=== PATIENT | male | born 1960 | race Caucasian/White ===

== ENCOUNTER 2023-01-17 13:05 | Outpatient (REF) | payer OTHER, SELFPAY ==
--- NOTE | ~2023-01-17 | XR_ITS ---
EXAMINATION: RIGHT FOOT, BILATERAL ANKLE AND CERVICAL SPINE CLINICAL INDICATION: Ankylosing spondylitis of spine. Pain. TECHNIQUE: Bilateral ankle 2 views. Right foot 3 views. Cervical spine 5 views. FINDINGS: RIGHT FOOT: The joint spaces are maintained normal. There is periarticular spurring of the PIP joint 1st digit. No visible acute fracture, dislocation or subluxation is seen. RIGHT ANKLE: There are small calcaneal and retrocalcaneal enthesophytes. Ankle mortise and subtalar joints are normal. No visible acute fracture, dislocation or subluxation seen. No bony erosive changes seen. LEFT ANKLE: No visible acute fracture, dislocation or subluxation seen. No bony erosive changes.There are retrocalcaneal enthesophytes. The soft tissues are normal CERVICAL SPINE: There is maintained cervical lordosis with ventral spondylosis at C3-C4, C4-C5, C5-C6 and C6-C7 disc heights. The vertebral heights and alignment are preserved. There is bilateral mild narrowing of neural foramina at C3-C4 disc levels from uncovertebral hypertrophic changes. The rest of the neuroforamina are widely patent. No visible acute fracture, dislocation or subluxation seen. The prevertebral and paravertebral soft tissues are normal. XR/XR ankle LT min 3V IMPRESSION: Small calcaneal heel and retrocalcaneal enthesophytes bilateral ankle. No acute fracture or dislocation seen. Unremarkable right foot exam. Mild bilateral narrowing of C3-C4 neuroforamina from uncovertebral hypertrophic changes. No acute fracture or dislocation seen.
--- NOTE | ~2023-01-17 | XR_ITS ---
EXAMINATION: RIGHT FOOT, BILATERAL ANKLE AND CERVICAL SPINE CLINICAL INDICATION: Ankylosing spondylitis of spine. Pain. TECHNIQUE: Bilateral ankle 2 views. Right foot 3 views. Cervical spine 5 views. FINDINGS: RIGHT FOOT: The joint spaces are maintained normal. There is periarticular spurring of the PIP joint 1st digit. No visible acute fracture, dislocation or subluxation is seen. RIGHT ANKLE: There are small calcaneal and retrocalcaneal enthesophytes. Ankle mortise and subtalar joints are normal. No visible acute fracture, dislocation or subluxation seen. No bony erosive changes seen. LEFT ANKLE: No visible acute fracture, dislocation or subluxation seen. No bony erosive changes.There are retrocalcaneal enthesophytes. The soft tissues are normal CERVICAL SPINE: There is maintained cervical lordosis with ventral spondylosis at C3-C4, C4-C5, C5-C6 and C6-C7 disc heights. The vertebral heights and alignment are preserved. There is bilateral mild narrowing of neural foramina at C3-C4 disc levels from uncovertebral hypertrophic changes. The rest of the neuroforamina are widely patent. No visible acute fracture, dislocation or subluxation seen. The prevertebral and paravertebral soft tissues are normal. XR/XR cervical spine 4V IMPRESSION: Small calcaneal heel and retrocalcaneal enthesophytes bilateral ankle. No acute fracture or dislocation seen. Unremarkable right foot exam. Mild bilateral narrowing of C3-C4 neuroforamina from uncovertebral hypertrophic changes. No acute fracture or dislocation seen.
--- NOTE | ~2023-01-17 | XR_ITS ---
EXAMINATION: XR THORACIC SPINE XR LUMBAR SPINE XR SACROILIAC JOINTS CLINICAL INFORMATION: Ankylosing spondylitis. COMPARISON: None available. TECHNIQUE: Dorsal spine 3 views. Lumbar spine 5 views. SI joints 3 views. FINDINGS: Thoracic Spine: There is maintained thoracic kyphosis with calcification of anterior longitudinal ligament. The vertebral heights and alignment are preserved. No aggressive lytic or sclerotic process seen. The paravertebral soft tissues are normal. Lumbar Spine: There is smooth S-shaped scoliosis of thoracolumbar spine. The vertebral heights are maintained. There is levoscoliosis of lumbar spine with the moderate right bridging osteophyte L2-L3 disc level. Mild loss of disc heights are seen at L1-L2, L2-L3 and L3-L4 disc levels. No aggressive lytic or sclerotic process seen. SI joints are symmetrical. SI Joints: There is normal symmetry of bilateral SI joints. No bony erosive changes, sclerosis or lytic process seen. XR/XR lumbar spine 4V min IMPRESSION: 1. Smooth S-shaped scoliosis of thoracolumbar spine. There is calcification of anterior longitudinal ligament. No visible acute fracture or dislocation seen. 2. There is levoscoliosis of lumbar spine with a right bridging osteophyte L2-L3 disc level. 3. SI Joints: There is normal symmetry of bilateral SI joints. No bony erosive changes, sclerosis or lytic process seen.
--- NOTE | ~2023-01-17 | XR_ITS ---
EXAMINATION: RIGHT FOOT, BILATERAL ANKLE AND CERVICAL SPINE CLINICAL INDICATION: Ankylosing spondylitis of spine. Pain. TECHNIQUE: Bilateral ankle 2 views. Right foot 3 views. Cervical spine 5 views. FINDINGS: RIGHT FOOT: The joint spaces are maintained normal. There is periarticular spurring of the PIP joint 1st digit. No visible acute fracture, dislocation or subluxation is seen. RIGHT ANKLE: There are small calcaneal and retrocalcaneal enthesophytes. Ankle mortise and subtalar joints are normal. No visible acute fracture, dislocation or subluxation seen. No bony erosive changes seen. LEFT ANKLE: No visible acute fracture, dislocation or subluxation seen. No bony erosive changes.There are retrocalcaneal enthesophytes. The soft tissues are normal CERVICAL SPINE: There is maintained cervical lordosis with ventral spondylosis at C3-C4, C4-C5, C5-C6 and C6-C7 disc heights. The vertebral heights and alignment are preserved. There is bilateral mild narrowing of neural foramina at C3-C4 disc levels from uncovertebral hypertrophic changes. The rest of the neuroforamina are widely patent. No visible acute fracture, dislocation or subluxation seen. The prevertebral and paravertebral soft tissues are normal. XR/XR foot RT min 3V IMPRESSION: Small calcaneal heel and retrocalcaneal enthesophytes bilateral ankle. No acute fracture or dislocation seen. Unremarkable right foot exam. Mild bilateral narrowing of C3-C4 neuroforamina from uncovertebral hypertrophic changes. No acute fracture or dislocation seen.
--- NOTE | ~2023-01-17 | XR_ITS ---
EXAMINATION: RIGHT FOOT, BILATERAL ANKLE AND CERVICAL SPINE CLINICAL INDICATION: Ankylosing spondylitis of spine. Pain. TECHNIQUE: Bilateral ankle 2 views. Right foot 3 views. Cervical spine 5 views. FINDINGS: RIGHT FOOT: The joint spaces are maintained normal. There is periarticular spurring of the PIP joint 1st digit. No visible acute fracture, dislocation or subluxation is seen. RIGHT ANKLE: There are small calcaneal and retrocalcaneal enthesophytes. Ankle mortise and subtalar joints are normal. No visible acute fracture, dislocation or subluxation seen. No bony erosive changes seen. LEFT ANKLE: No visible acute fracture, dislocation or subluxation seen. No bony erosive changes.There are retrocalcaneal enthesophytes. The soft tissues are normal CERVICAL SPINE: There is maintained cervical lordosis with ventral spondylosis at C3-C4, C4-C5, C5-C6 and C6-C7 disc heights. The vertebral heights and alignment are preserved. There is bilateral mild narrowing of neural foramina at C3-C4 disc levels from uncovertebral hypertrophic changes. The rest of the neuroforamina are widely patent. No visible acute fracture, dislocation or subluxation seen. The prevertebral and paravertebral soft tissues are normal. XR/XR ankle RT min 3V IMPRESSION: Small calcaneal heel and retrocalcaneal enthesophytes bilateral ankle. No acute fracture or dislocation seen. Unremarkable right foot exam. Mild bilateral narrowing of C3-C4 neuroforamina from uncovertebral hypertrophic changes. No acute fracture or dislocation seen.
--- NOTE | ~2023-01-17 | XR_ITS ---
EXAMINATION: XR THORACIC SPINE XR LUMBAR SPINE XR SACROILIAC JOINTS CLINICAL INFORMATION: Ankylosing spondylitis. COMPARISON: None available. TECHNIQUE: Dorsal spine 3 views. Lumbar spine 5 views. SI joints 3 views. FINDINGS: Thoracic Spine: There is maintained thoracic kyphosis with calcification of anterior longitudinal ligament. The vertebral heights and alignment are preserved. No aggressive lytic or sclerotic process seen. The paravertebral soft tissues are normal. Lumbar Spine: There is smooth S-shaped scoliosis of thoracolumbar spine. The vertebral heights are maintained. There is levoscoliosis of lumbar spine with the moderate right bridging osteophyte L2-L3 disc level. Mild loss of disc heights are seen at L1-L2, L2-L3 and L3-L4 disc levels. No aggressive lytic or sclerotic process seen. SI joints are symmetrical. SI Joints: There is normal symmetry of bilateral SI joints. No bony erosive changes, sclerosis or lytic process seen. XR/XR sacroiliac joint min 3V IMPRESSION: 1. Smooth S-shaped scoliosis of thoracolumbar spine. There is calcification of anterior longitudinal ligament. No visible acute fracture or dislocation seen. 2. There is levoscoliosis of lumbar spine with a right bridging osteophyte L2-L3 disc level. 3. SI Joints: There is normal symmetry of bilateral SI joints. No bony erosive changes, sclerosis or lytic process seen.
--- NOTE | ~2023-01-17 | XR_ITS ---
EXAMINATION: XR THORACIC SPINE XR LUMBAR SPINE XR SACROILIAC JOINTS CLINICAL INFORMATION: Ankylosing spondylitis. COMPARISON: None available. TECHNIQUE: Dorsal spine 3 views. Lumbar spine 5 views. SI joints 3 views. FINDINGS: Thoracic Spine: There is maintained thoracic kyphosis with calcification of anterior longitudinal ligament. The vertebral heights and alignment are preserved. No aggressive lytic or sclerotic process seen. The paravertebral soft tissues are normal. Lumbar Spine: There is smooth S-shaped scoliosis of thoracolumbar spine. The vertebral heights are maintained. There is levoscoliosis of lumbar spine with the moderate right bridging osteophyte L2-L3 disc level. Mild loss of disc heights are seen at L1-L2, L2-L3 and L3-L4 disc levels. No aggressive lytic or sclerotic process seen. SI joints are symmetrical. SI Joints: There is normal symmetry of bilateral SI joints. No bony erosive changes, sclerosis or lytic process seen. XR/XR thoracic spine 3V IMPRESSION: 1. Smooth S-shaped scoliosis of thoracolumbar spine. There is calcification of anterior longitudinal ligament. No visible acute fracture or dislocation seen. 2. There is levoscoliosis of lumbar spine with a right bridging osteophyte L2-L3 disc level. 3. SI Joints: There is normal symmetry of bilateral SI joints. No bony erosive changes, sclerosis or lytic process seen.
[2023-01-17 14:49] LABS: MANUAL DIFF FLAG NO
[2023-01-17 14:58] LABS: Basophils Percent Auto 0.4 % (0-2); Eosinophils Absolute Auto 0.1 X10*3/uL (0.0-0.4); Eosinophils Percent Auto 0.9 % (0-4); Hematocrit 39.9 % (42.0-52.0); Hemoglobin 13.9 g/dl (14.0-18.0); Imm Gran Abs Auto 0.02 X10*3/uL (0.00-0.03); Imm Gran Pct Auto 0.3 % (0.0-0.4); Lymphocytes Percent Auto 27.7 % (20-40); Mean Corpuscular HGB Conc 34.8 g/dl (31.0-36.0); Mean Corpuscular Volume 88.9 fL (80.0-98.0); Mean Platelet Volume 9.8 fL (9.4-12.4); Monocytes Absolute Auto 0.5 X10*3/uL (0.1-1.2); Monocytes Percent Auto 6.7 % (2-11); Neutrophils Absolute Auto 4.5 x10*3/uL (2.0-8.3); Platelet Count 227 X10*3/uL (160-400); Red Blood Count 4.49 X10*6/uL (4.60-5.80); Red Cell Distribution Width 12.5 % (11.0-16.0)
[2023-01-17 15:24] LABS: Alanine Aminotransferase 52 U/L (0-40); Albumin Level 4.4 g/dL (3.5-5.0); Alkaline Phosphatase 100 U/L (39-117); Anion Gap 15 (12-20); Aspartate Amino Transferase 42 U/L (5-37); Bilirubin Total 0.8 mg/dL (0.0-1.0); Blood Urea Nitrogen 8 mg/dL (9-16); C Reactive Protein 0.42 mg/dL (< or = 0.50); Calcium 9.2 mg/dL (8.4-10.2); Carbon Dioxide 23 mmol/L (22-29); Chloride 103 mmol/L (96-108); Estimated Glomerular Filt Rate > 60; Glucose Random 104 mg/dL (60-115); Potassium 4.4 mmol/L (3.3-5.1); Rheumatoid Factor < 13.0 IU/mL (<15.0); Sodium 137 mmol/L (135-145); Total Protein 6.6 g/dL (6.5-8.0)
[2023-01-17 16:18] LABS: Erythrocyte Sedimentation Rate 5 MM/HR (0-15)
[2023-01-18 04:04] LABS: HBS Num1 0.11 mIU/mL (0-7.99); HBc Num1 0.07 S/CO (0.00-0.79); Hepatitis A Antibody IgM 0.13 Index (0-0.79); Hepatitis B Core Antibody Nonreactive (Nonreactive); Hepatitis B Surface Antigen Negative (Negative); ~HepC Num1 0.07 S/CO (0.00-0.79); ~Hepatitis A Antibody IgM Nonreactive (Nonreactive); ~Hepatitis B Surface Antibody NONREACTIVE (Nonreactive); ~Hepatitis C Antibody Nonreactive (Nonreactive)
[2023-01-20 04:34] LABS: TS Negative Control Passed; TS Panel A 1; TS Panel B 1; TS Positive Control Passed; TSpotTB Negative (Negative)
[2023-01-20 23:08] LABS: Prot Elec - Albumin 4.3 g/dL (3.8-4.8); Prot Elec - Alpha1 0.3 g/dL (0.2-0.3); Prot Elec - Alpha2 0.9 g/dL (0.5-0.9); Prot Elec - Beta 1 0.4 g/dL (0.4-0.6); Prot Elec - Beta 2 0.3 g/dL (0.2-0.5); Prot Elec - Gamma 0.7 g/dL (0.8-1.7); Prot Elec - Total Protein 6.8 g/dL (6.1-8.1)
[2023-01-21 15:19] LABS: IgA 133 mg/dL (47-310); IgG 746 mg/dL (600-1640); IgM 135 mg/dL (50-300)
[2023-01-22 11:03] LABS: Cyclic Citrullinated Peptide <16 UNITS
== END 2023-01-17 13:06 | disposition home or self-care (01) ==
LOC: HO.XRAY 13:05
PROVIDERS: PCP Internal Medicine; Visit Provider Student in an Organized Health Care Education/Training Program
DX: M45.9 Ankylosing spondylitis of unspecified sites in spine (principal); M06.09 Rheumatoid arthritis without rheumatoid factor, multiple sites; M1A.09X0 Idiopathic chronic gout, multiple sites, without tophus (tophi); Z11.59 Encounter for screening for other viral diseases; Z11.7 Encounter for testing for latent tuberculosis infection; Z79.52 Long term (current) use of systemic steroids; Z79.899 Other long term (current) drug therapy; Z72.89 Other problems related to lifestyle
CPT/HCPCS: 36415; 72050; 72072; 72110; 72202; 73610; 73630; 80053; 82784; 84165; 84550; 85025; 85652; 86140; 86200; 86334; 86431; 86481; 86704; 86706; 86709; 86803; 87340

== ENCOUNTER 2023-09-24 13:11 | Outpatient (AMB) | payer OTHER, SELFPAY ==
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
[2023-09-24 13:15] VITALS: BP 100/80; PULSE 64; TEMP 36.5; O2SAT 97; BMI 28.9
== END 2023-09-24 13:46 | disposition home or self-care (01) ==
PROVIDERS: PCP Internal Medicine; Visit Provider Student in an Organized Health Care Education/Training Program
DX: M06.09 Rheumatoid arthritis without rheumatoid factor, multiple sites (principal); M1A.09X0 Idiopathic chronic gout, multiple sites, without tophus (tophi); Z79.631 Long term (current) use of antimetabolite agent; Z71.85 Encounter for immunization safety counseling
CPT/HCPCS: 99214

== ENCOUNTER → 2023-09-24 13:11 | Outpatient (BNVA) | payer OTHER, SELFPAY | PROVIDERS: PCP Internal Medicine; Visit Provider Student in an Organized Health Care Education/Training Program ==

== ENCOUNTER 2023-12-24 12:45 | Outpatient (AMB) | payer OTHER, SELFPAY ==
[2023-12-24 12:48] VITALS: BP 118/64; PULSE 74; O2SAT 97; BMI 28.9
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
== END 2023-12-24 13:18 | disposition home or self-care (01) ==
PROVIDERS: PCP Internal Medicine; Visit Provider Student in an Organized Health Care Education/Training Program
DX: M06.09 Rheumatoid arthritis without rheumatoid factor, multiple sites (principal); M1A.09X0 Idiopathic chronic gout, multiple sites, without tophus (tophi); Z79.631 Long term (current) use of antimetabolite agent; Z79.899 Other long term (current) drug therapy
CPT/HCPCS: 99214

== ENCOUNTER → 2023-12-24 12:45 | Outpatient (BNVA) | payer OTHER, SELFPAY | PROVIDERS: PCP Internal Medicine; Visit Provider Student in an Organized Health Care Education/Training Program ==

== ENCOUNTER 2024-03-25 08:01 | Outpatient (REF) | payer OTHER, SELFPAY ==
[2024-03-25 10:40] LABS: MANUAL DIFF FLAG NO
[2024-03-25 10:57] LABS: Basophils Percent Auto 0.5 % (0-2); Eosinophils Absolute Auto 0.1 X10*3/uL (0.0-0.4); Eosinophils Percent Auto 1.3 % (0-4); Hematocrit 41.1 % (42.0-52.0); Imm Gran Abs Auto 0.03 X10*3/uL (0.00-0.03); Imm Gran Pct Auto 0.5 % (0.0-0.4); Lymphocytes Absolute Auto 1.9 X10*3/uL (1.2-4.9); Lymphocytes Percent Auto 30.5 % (20-40); Mean Corpuscular HGB Conc 34.1 g/dl (31.0-36.0); Mean Corpuscular Volume 91.1 fL (80.0-98.0); Mean Platelet Volume 10.4 fL (9.4-12.4); Monocytes Absolute Auto 0.6 X10*3/uL (0.1-1.2); Monocytes Percent Auto 9.4 % (2-11); Neutrophils Absolute Auto 3.7 x10*3/uL (2.0-8.3); Neutrophils Percent Auto 57.8 % (45-73); Platelet Count 201 X10*3/uL (160-400); Red Blood Count 4.51 X10*6/uL (4.60-5.80); Red Cell Distribution Width 13.2 % (11.0-16.0); White Blood Count 6.3 X10*3/uL (4.8-10.8)
[2024-03-25 10:59] LABS: Alanine Aminotransferase 36 U/L (0-40); Albumin Level 4.6 g/dL (3.5-5.0); Alkaline Phosphatase 91 U/L (39-117); Anion Gap 12 (12-20); Aspartate Amino Transferase 34 U/L (5-37); Bilirubin Total 0.8 mg/dL (0.0-1.0); Blood Urea Nitrogen 11 mg/dL (9-16); C Reactive Protein 0.33 mg/dL (< or = 0.50); Calcium 9.7 mg/dL (8.4-10.2); Carbon Dioxide 24 mmol/L (22-29); Chloride 105 mmol/L (96-108); Estimated Glomerular Filt Rate > 60; Glucose Random 106 mg/dL (60-115); Potassium 4.1 mmol/L (3.3-5.1); Sodium 137 mmol/L (135-145); Total Protein 7.3 g/dL (6.5-8.0)
[2024-03-25 11:21] LABS: HBS Num1 0.71 mIU/mL (0-7.99); HBc Num1 0.07 S/CO (0.00-0.79); Hepatitis A Antibody IgM 0.15 Index (0-0.79); Hepatitis B Core Antibody Nonreactive (Nonreactive); Hepatitis B Surface Antigen Negative (Negative); ~HepC Num1 0.05 S/CO (0.00-0.79); ~Hepatitis A Antibody IgM Nonreactive (Nonreactive); ~Hepatitis B Surface Antibody NONREACTIVE (Nonreactive); ~Hepatitis C Antibody Nonreactive (Nonreactive)
[2024-03-25 11:48] LABS: Erythrocyte Sedimentation Rate 6 MM/HR (0-15)
[2024-03-28 17:49] LABS: TS Negative Control Passed; TS Panel A 0; TS Panel B 1; TS Positive Control Passed; TSpotTB Negative (Negative)
== END 2024-03-25 08:02 | disposition home or self-care (01) ==
LOC: HO.10HDL 08:01
PROVIDERS: Visit Provider Student in an Organized Health Care Education/Training Program
DX: Z11.7 Encounter for testing for latent tuberculosis infection (principal); Z79.631 Long term (current) use of antimetabolite agent; Z71.85 Encounter for immunization safety counseling; Z11.59 Encounter for screening for other viral diseases
CPT/HCPCS: 36415; 80053; 85025; 85652; 86140; 86481; 86704; 86706; 86709; 86803; 87340

== ENCOUNTER 2024-03-25 08:15 | Outpatient (AMB) | payer OTHER, SELFPAY ==
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
[2024-03-25 08:26] VITALS: BP 116/68; PULSE 58; O2SAT 98; BMI 27.7
== END 2024-03-25 08:46 | disposition home or self-care (01) ==
PROVIDERS: PCP Internal Medicine; Visit Provider Student in an Organized Health Care Education/Training Program
DX: M06.09 Rheumatoid arthritis without rheumatoid factor, multiple sites (principal); M1A.09X0 Idiopathic chronic gout, multiple sites, without tophus (tophi); Z79.631 Long term (current) use of antimetabolite agent; Z79.899 Other long term (current) drug therapy
CPT/HCPCS: 99214; G2211

== ENCOUNTER 2024-07-28 09:11 | Outpatient (AMB) | payer OTHER, SELFPAY ==
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
[2024-07-28 09:20] VITALS: BP 102/70; PULSE 65; O2SAT 98; BMI 29.0
== END 2024-07-28 09:53 | disposition home or self-care (01) ==
PROVIDERS: PCP Internal Medicine; Visit Provider Student in an Organized Health Care Education/Training Program
DX: M06.09 Rheumatoid arthritis without rheumatoid factor, multiple sites (principal); M1A.09X0 Idiopathic chronic gout, multiple sites, without tophus (tophi); Z79.631 Long term (current) use of antimetabolite agent; Z79.899 Other long term (current) drug therapy; M54.2 Cervicalgia
CPT/HCPCS: 99215

== ENCOUNTER → 2024-07-28 09:11 | Outpatient (BNVA) | payer OTHER, SELFPAY | PROVIDERS: PCP Internal Medicine; Visit Provider Student in an Organized Health Care Education/Training Program ==

== ENCOUNTER 2025-03-26 15:27 | Outpatient (AMB) | payer OTHER, SELFPAY ==
[2025-03-26 15:32] VITALS: BP 108/68; PULSE 58; O2SAT 97; BMI 28.1
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
== END 2025-03-26 16:07 | disposition home or self-care (01) ==
LOC: HO.RHE 15:28
PROVIDERS: PCP Internal Medicine; Visit Provider Student in an Organized Health Care Education/Training Program
DX: M06.09 Rheumatoid arthritis without rheumatoid factor, multiple sites (principal); M1A.09X0 Idiopathic chronic gout, multiple sites, without tophus (tophi); Z79.631 Long term (current) use of antimetabolite agent; Z79.899 Other long term (current) drug therapy
CPT/HCPCS: 99214; G2211